=== PATIENT | female | born 1980 | race Caucasian/White ===

== ENCOUNTER 2017-01-04 15:33 | Emergency (ER) | payer OTHER ==
[~2017-01-04] VITALS: Ht 170.2 cm; Wt 97.5 kg
[~2017-01-04 15:33] MED LIST: CYCL10TA2 PO; HYDR-971 PO; METH-37 PO; NAPR500T3 PO; PENI500T PO; TRAM-29 PO; TRAM50TA PO
[2017-01-04 15:45] VITALS: BP 168/95
[2017-01-04] MEDS ORDERED: NAPR550T3 PO (16:01)
[2017-01-04] MEDS ORDERED: HYDR-971 PO (16:01)
[2017-01-04] MEDS: DEXAMETHASONE SOD PHOS 10 MG/ML VIAL IM ONE (16:10)
--- NOTE | 2017-01-04 16:10 | ED.ADGEN ---
Past History Past Medical History: Ovarian Cyst Past Surgical History: Tubal ligation Alcohol Use: Occasionally Drug Use: None Adult General HPI HPI Patient is a 36-year-old female presents emergency department complaining of left trapezius pain that is now radiating down her left arm. Patient denies any specific injury or trauma to the area. She has tried one hydrocodone as well as some ibuprofen at home. Review of Systems Review of Systems Constitutional: Denies fever or chills [] Eyes: Denies change in visual acuity, redness, or eye pain [] HENT: Denies nasal congestion or sore throat [] Respiratory: Denies cough or shortness of breath [] Cardiovascular: No additional information not addressed in HPI [] GI: Denies abdominal pain, nausea, vomiting, bloody stools or diarrhea [] : Denies dysuria or hematuria [] Musculoskeletal: Denies back pain or joint pain [] Integument: Denies rash or skin lesions [] Neurologic: Denies headache, focal weakness or sensory changes [] Endocrine: Denies polyuria or polydipsia [] Current Medications Current Medications Current Medications Medications (Trade) Dose Ordered Sig/Rosemary Start Time Stop Time Status Last Admin Dose Admin Dexamethasone Sodium Phosphate (Decadron) 10 mg 1X ONCE 01/04/17 16:10 01/04/17 16:11 Allergies Allergies Allergies Coded Allergies Type Severity Reaction Last Updated Verified No Known Drug Allergies 08/31/15 No Physical Exam Physical Exam Constitutional: Well developed, well nourished, no acute distress, non-toxic appearance. [] HENT: Normocephalic, atraumatic, bilateral external ears normal, oropharynx moist, no oral exudates, nose normal. [] Eyes: PERRLA, EOMI, conjunctiva normal, no discharge. [] Neck: Normal range of motion, left trapezius is tender to palpation, supple, no stridor. [] Cardiovascular:Heart rate regular rhythm, no murmur [] Lungs & Thorax: Bilateral breath sounds clear to auscultation [] Abdomen: Bowel sounds normal, soft, no tenderness, no masses, no pulsatile masses. [] Skin: Warm, dry, no erythema, no rash. [] Back: No tenderness, no CVA tenderness. [] Extremities: No tenderness, no cyanosis, no clubbing, ROM intact, no edema. [] Neurologic: Alert and oriented X 3, normal motor function, normal sensory function, no focal deficits noted. [] Psychologic: Affect normal, judgement normal, mood normal. [] EKG EKG [] Radiology/Procedures Radiology/Procedures [] Course & Med Decision Making Course & Med Decision Making Pertinent Labs and Imaging studies reviewed. (See chart for details) Decadron and Toradol here in the emergency department. Sent home with a prescription for Naprosyn as well as a small prescription of [place] for breakthrough pain. Patient was encouraged to acquire a primary care physician she is had multiple emergency department visits this year. Patient states that she is fairly new to the area but will attempt to get a primary care physician soon. [] Final Impression Final Impression Neck pain, radiculopathy [] Problems: Dragon Disclaimer Dragon Disclaimer This electronic medical record was generated, in whole or in part, using a voice recognition dictation system. BRANDYN GARCIA MD Jan 04, 2017 16:10
== END 2017-01-04 16:15 | disposition home or self-care (01) ==
LOC: ER 15:33
DX: M54.12 Radiculopathy, cervical region (principal)
CPT/HCPCS: 96372; 99283; J1100

== ENCOUNTER 2017-07-25 11:24 | Emergency (ER) | payer OTHER ==
[~2017-07-25 11:24] MED LIST changes: +CYCL-331 PO; -CYCL10TA2 PO; +NAPR-677 PO; -NAPR500T3 PO; +NAPR500T4 PO; -TRAM-29 PO; +TRAM-48 PO
--- NOTE | 2017-07-25 12:06 | PHYS DOC ---
Past History Past Medical History: Ovarian Cyst Past Surgical History: Tubal ligation Alcohol Use: None Drug Use: None Adult General Chief Complaint Chief Complaint: VAGINAL BLEEDING HPI HPI Patient is a 37 year old female who presents with complaint of pelvic cramping and bleeding that started early this morning. Patient notes that she had a history of irregular periods when she was younger, however she states that her cycles have recently over the past few years been quite regular. Patient states that she was due to have her next menstrual period in one week, however she started having bleeding earlier today. Patient states that the bleeding was consistent with heavy menstrual flow, however the patient did pass a clot which caused her concern. Patient states that currently her bleeding has lightened up over the past couple hours. Patient does not currently follow with an [facility]. Patient has history of bilateral tubal ligation. Patient also states that she has had history of ovarian cysts and has experienced a ruptured ovarian cyst in the past. Patient states that her symptoms are similar to previous episode of ruptured cyst. On my evaluation, patient rates her pain as 7 out of 10. Patient states that his in the suprapubic region of her abdomen and pelvis. Review of Systems Review of Systems Constitutional: Denies fever or chills [] Eyes: Denies change in visual acuity, redness, or eye pain [] HENT: Denies nasal congestion or sore throat [] Respiratory: Denies cough or shortness of breath [] Cardiovascular: Denies chest pain or edema[] GI: Nausea, denies abdominal pain, vomiting, bloody stools or diarrhea [] : Vaginal bleeding, pelvic cramping, denies dysuria[] Musculoskeletal: Denies back pain or joint pain [] Integument: Denies rash or skin lesions [] Neurologic: Denies headache, focal weakness or sensory changes [] Allergies Allergies Allergies Coded Allergies Type Severity Reaction Last Updated Verified No Known Drug Allergies 08/31/15 No Physical Exam Physical Exam Constitutional: Well developed, well nourished, no acute distress, non-toxic appearance. [] HENT: Normocephalic, atraumatic, bilateral external ears normal, oropharynx moist, no oral exudates, nose normal. [] Eyes: PERRLA, EOMI, conjunctiva normal, no discharge. [] Neck: Normal range of motion, no tenderness, supple, no stridor. [] Cardiovascular:Heart rate regular rhythm, no murmur [] Lungs & Thorax: Bilateral breath sounds clear to auscultation [] Abdomen: Bowel sounds normal, soft, no tenderness, no masses, no pulsatile masses. Pelvic: Normal external exam, small amount of clotted blood in vaginal canal with no persistent bleeding, cervical os closed, no cervical motion tenderness, midline tenderness on bimanual exam[] Skin: Warm, dry, no erythema, no rash. [] Back: No tenderness, no CVA tenderness. [] Extremities: No tenderness, no cyanosis, no clubbing, ROM intact, no edema. [] Neurologic: Alert and oriented X 3, normal motor function, normal sensory function, no focal deficits noted. [] Current Patient Data Vital Signs Vital Signs Date Time Temp Pulse Resp B/P (MAP) Pulse Ox O2 Delivery O2 Flow Rate FiO2 07/25/17 11:25 98.4 108 18 99 Room Air Lab Results Laboratory Tests Test 07/25/17 11:54 Urine Collection Type Unknown Urine Color Yellow Urine Clarity Clear Urine pH 5.5 Urine Specific [place] 1.025 Urine Protein Neg Urine Glucose (UA) Neg mg/dL Urine Ketones (Stick) Neg mg/dL Urine Blood Small Urine Nitrite Neg Urine Bilirubin Neg Urine Urobilinogen Dipstick 0.2 mg/dL Urine Leukocyte Esterase Neg Current Medications Medications (Trade) Dose Ordered Sig/Rosemary Route PRN Reason Start Time Stop Time Status Last Admin Dose Admin Ibuprofen (Motrin) 800 mg 1X STAT PO 07/25/17 12:27 07/25/17 12:28 DC EKG EKG Not performed[] Radiology/Procedures Radiology/Procedures Not performed[] Course & Med Decision Making Course & Med Decision Making Pertinent Labs and Imaging studies reviewed. (See chart for details) Patient's hCG was negative in the emergency department. The patient has midline tenderness with irregular vaginal bleeding which appears to have decreased since onset. Patient's vital signs are stable and the patient appears nontoxic. Patient was treated with ibuprofen for presumed dysmenorrhea. Patient referred to Dr. Gutierres of [facility] at [facility] for follow-up in one week. Advised return emergency department for any worsening symptoms. Patient voiced understanding and in agreement with treatment plan. Dragon Disclaimer Dragon Disclaimer This chart was dictated in whole or in part using Voice Recognition software in a busy, high-work load, and often noisy Emergency Department environment. It may contain unintended and wholly unrecognized errors or omissions. Departure Departure: Impression: Primary Impression: Dysmenorrhea Disposition: 01 HOME, SELF-CARE Condition: IMPROVED Referrals: PCP,ANANTH (PCP) Patient Instructions: Dysmenorrhea Additional Instructions: Follow-up with Dr. Gutierres of [facility] in one week. His office number is . His office address is [address] [place] [address] located at [facility]. Return to the emergency department for any worsening symptoms. Scripts Ibuprofen (IBUPROFEN) 800 Mg Tablet 1 TAB PO TID Y for PAIN, #30 TAB 0 Refills Prov: CRISTIANA BUSCH MD 07/25/17 CRISTIANA BUSCH MD Jul 25, 2017 12:06
[2017-07-25] MEDS ORDERED: IBUPROFEN 800 MG TABLET. PO STA (12:27)
[2017-07-25 12:31] LABS: BILIRUBIN,URINE NEG (NEG); CLARITY,URINE CLEAR; COLOR,URINE YELLOW; GLUCOSE,URINE NEG (NEG)
[2017-07-25 12:32] LABS: NITRITE,URINE NEG (NEG); UROBILINOGEN,URINE 0.2 mg/dL (0.2 mg/dL)
[2017-07-25] MEDS ORDERED: IBUP800T19 PO (12:41)
[2017-07-25 12:45] VITALS: BP 119/60
[2017-07-26 15:07] LABS: CHLAMYDIA PROBE Negative (Negative)
== END 2017-07-25 12:45 | disposition home or self-care (01) ==
LOC: ER 11:24
DX: N94.6 Dysmenorrhea, unspecified (principal); Z98.51 Tubal ligation status
CPT/HCPCS: 36415; 81003; 81025; 87491; 87591; 99284; Q0111

== ENCOUNTER 2017-09-11 21:00 | Emergency (ER) | payer OTHER ==
[~2017-09-11] VITALS: Ht 172.7 cm; Wt 93.0 kg
[~2017-09-11 21:00] MED LIST changes: +IBUP800T19 PO
[2017-09-11] MEDS ORDERED: LIDOCAINE 2%/EPI 1:100,000 20 ML VIAL. IJ ONE (22:00)
[2017-09-11] MEDS ORDERED: cefTRIAXone IM 1 GM VIAL IM ONE (22:00)
--- NOTE | 2017-09-11 22:08 | PHYS DOC ---
General Chief Complaint: LACERATION/AVULSION Stated Complaint: LAC Time Seen by MD: 21:02 Source: patient Exam Limitations: no limitations Problems: History of Present Illness Initial Comments Patient is a 37-year-old female who comes to the ED with left arm laceration. Patient states that prior to arrival she was pushing trash down into the trashcan and cut the medial aspect of her left wrist on an unknown sharp object. Bleeding was minimal she does have some fat cells protruding she says her tetanus is up-to-date. She denies any current pain complaints or pre- arrival treatment. I discussed the need for suture or staple wound intervention the patient is requesting sutures. Onset: just prior to arrival Severity: moderate Pain/Injury Location: left wrist Method of Injury: incised Modifying Factors: worse with jarring, worse with movement, improves with rest Allergies: Coded Allergies: No Known Drug Allergies (Unverified , 08/31/15) Past Medical History Medical History: other (ovarian cyst) Surgical History: other (tubal ligation) Social History Smoker: cigarettes Alcohol: occasionally Drugs: none Review of Systems Constitutional: denies chills, denies fever Respiratory: denies cough, denies shortness of breath Cardiovascular: denies chest pain, denies palpitations Gastrointestinal: denies nausea, denies vomiting Musculoskeletal: see HPI Skin: see HPI Psychiatric/Neurological: denies numbness, denies paresthesia, denies weakness Physical Exam General Appearance: WD/WN, no apparent distress Cardiovascular/Respiratory: normal peripheral pulses, no respiratory distress Elbow/Forearm: normal inspection, non-tender, no evidence of injury Wrist: normal ROM (there is a 1 cm linear laceration at the medial left wrist overlying the ulnar styloid, there is adipose tissue protruding no active bleeding. No contused tissue or foreign bodies, no bony tenderness or palpable bony abnormality.) Hand: normal inspection, non-tender, no evidence of injury Neurologic/Tendon: normal sensation, normal motor functions, normal tendon functions, responds to pain, no evidence tendon injury Psychiatric: alert, oriented x 3 Skin: normal color, warm/dry (wrist laceration as above) Laceration/Wound Repair Laceration/Wound Repair : Wound Location: upper extremity Wound's Depth, Shape: into muscle, linear Wound Length (cm): 1 Wound Explored: clean Irrigated w/ Saline (ccs): 50 Betadine Prep?: Yes Anesthesia: Lidocaine w/ Epi Volume Anesthetic (ccs): 5 Wound Debrided: minimal Wound Repaired With: sutures Suture Size/Type: 4:0, nylon Number of Sutures: 3 Layer Closure?: No Sterile Dressing Applied?: Yes Splint Applied?: No Progress Informed consent obtained. Analgesia achieved with 5 mL 2% lidocaine with epinephrine. The wound was then aggressively irrigated first with Betadine and flushed with normal saline. Sterile technique, wound edges were approximated with 3 4-0 Ethilon sutures. Patient tolerated the procedure well no complications wound care was discussed verbally and dispensed in written format in departure instructions. Orders, Labs, Meds No new or progressive symptoms throughout the ED course and her vital signs remained stable. Wound care was discussed, see departure instructions. Departure Time of Disposition: 22:06 Disposition: 01 HOME, SELF-CARE Diagnosis: left wrist laceration Condition: IMPROVED Patient Instructions: Sutured Wound Care, [id number] Additional Instructions: Please review the patient education materials given by ED staff. [id number] Tylenol or ibuprofen as needed. Limit the use of your left arm and hand as you can rip the stitches out causing wound dehiscence. Keep wound covered with sterile dressing until completely healed. Wash wound twice daily with soap and warm water, blot dry. Change dressing after each wash. Return to the emergency department or follow-up with your doctor in 7-10 days for a wound check and possible suture removal. Return to ED with new or changing symptoms. MARCO ANTONIO ZAIDI DO Sep 11, 2017 22:08
[2017-09-11 22:11] VITALS: BP 123/65
== END 2017-09-11 22:16 | disposition home or self-care (01) ==
LOC: ER 21:00
DX: S61.512A Laceration without foreign body of left wrist, initial encounter (principal); F17.210 Nicotine dependence, cigarettes, uncomplicated; W26.8XXA Contact with other sharp object(s), not elsewhere classified, initial encounter; Y93.89 Activity, other specified; Y99.8 Other external cause status; Y92.89 Other specified places as the place of occurrence of the external cause
CPT/HCPCS: 12001; 96372; 99283; J0696

== ENCOUNTER 2017-09-23 17:08 | Emergency (ER) | payer OTHER ==
[~2017-09-23] VITALS: Ht 172.7 cm; Wt 93.0 kg
[2017-09-23 17:16] VITALS: BP 122/95
--- NOTE | 2017-09-23 17:30 | PHYS DOC ---
Past History Past Medical History: No Pertinent History, Ovarian Cyst Past Surgical History: Tubal ligation Alcohol Use: Occasionally Drug Use: None Adult General Chief Complaint Chief Complaint: SUTURE/STAPLE REMOVAL HPI HPI 37-year-old female patient presented to ER for suture removal that was placed in this emergency room 11 days ago in left forearm. Patient denies any fever and chills on discharge from wound. Patient is up-to-date with her tetanus immunization. Review of Systems Review of Systems Constitutional: Denies fever or chills [] Eyes: Denies change in visual acuity, redness, or eye pain [] HENT: Denies nasal congestion or sore throat [] Respiratory: Denies cough or shortness of breath [] Cardiovascular: No additional information not addressed in HPI [] GI: Denies abdominal pain, nausea, vomiting, bloody stools or diarrhea [] : Denies dysuria or hematuria [] Musculoskeletal: Denies back pain or joint pain [] Integument: Denies rash or skin lesions [] Neurologic: Denies headache, focal weakness or sensory changes [] Endocrine: Denies polyuria or polydipsia [] All other systems were reviewed and found to be within normal limits, except as documented in this note. Allergies Allergies Allergies Coded Allergies Type Severity Reaction Last Updated Verified No Known Drug Allergies 08/31/15 No Physical Exam Physical Exam Constitutional: Well developed, well nourished, no acute distress, non-toxic appearance. [] HENT: Normocephalic, atraumatic, bilateral external ears normal, oropharynx moist, no oral exudates, nose normal. [] Eyes: PERRLA, EOMI, conjunctiva normal, no discharge. [] Neck: Normal range of motion, no tenderness, supple, no stridor. [] Cardiovascular:Heart rate regular rhythm, no murmur [] Lungs & Thorax: Bilateral breath sounds clear to auscultation [] Skin: Warm, dry, no erythema, no rash, clean and healed small wound in left forearm with 3 sutures. [] Extremities: No tenderness, no cyanosis, no clubbing, ROM intact, no edema. [] Current Patient Data Vital Signs Vital Signs Date Time Temp Pulse Resp B/P (MAP) Pulse Ox O2 Delivery O2 Flow Rate FiO2 09/23/17 17:16 98.0 94 18 99 Room Air EKG EKG [] Radiology/Procedures Radiology/Procedures [] Course & Med Decision Making Course & Med Decision Making Evaluation of patient in ER showed 37-year-old male patient presented to ER for suture removal. 3 sutures from the left forearm was removed by [employer] without problem. Dragon Disclaimer Dragon Disclaimer This electronic medical record was generated, in whole or in part, using a voice recognition dictation system. Departure Departure: Impression: Primary Impression: Encounter for removal of sutures Disposition: HOME, SELF-CARE (At 1740) Condition: STABLE Referrals: PCP,NO (PCP) Patient Instructions: Suture Removal SIRISHA ESPARZA MD Sep 23, 2017 17:30
== END 2017-09-23 17:43 | disposition home or self-care (01) ==
LOC: ER 17:08
DX: S50.912D Unspecified superficial injury of left forearm, subsequent encounter (principal); X58.XXXD Exposure to other specified factors, subsequent encounter
CPT/HCPCS: 99281